=== PATIENT | female | born 1985 | race Caucasian/White ===

== ENCOUNTER 2021-09-29 10:14 | Observation (INO) | payer OTHER ==
[~2021-09-29] VITALS: Wt 83.7 kg
[~2021-09-29 10:14] MED LIST: ASPI81CH PO; Aldactone25 MG PO; BENZT; CARV3.125 PO; FURO20 PO; Flecainide Acet50 MG PO; LISI5 PO; LOSA25 PO; MULVITMINE; PRENATAL TABLE1 EAC1; Pacerone100 MG PO; SPIR25 PO; Tambocor100 MG PO; XARELTO10 MG PO; XARELTO20 MG PO; [UNRECOGNIZED DRUG - OTHER]
[2021-09-29] MEDS ORDERED: METO25ER PO (16:34)
[2021-09-29 17:18] LABS: Hematocrit 40.9 % (33.0-51.0); Hemoglobin 13.3 g/dL (11.5-16.0); Mean Corpuscular HGB 27.4 pg (26.0-34.0); Mean Corpuscular HGB Conc 32.5 g/dL (31.5-36.5); Mean Corpuscular Volume 84 fL (80-100); Mean Platelet Volume 9.9 fL (9.1-12.4); Platelet Count 285 K/mm3 (150-400); RDW Coefficient Variation 14.2 % (11.7-14.2); RDW Standard Deviation 43.5 fL (35.1-46.3); Red Blood Cell Count 4.86 M/mm3 (3.80-5.20); White Blood Cell Count 8.49 K/mm3 (4.00-11.30)
[2021-09-29 17:41] LABS: International Normalized Ratio 1.06; Prothrombin Time Results 11.1 Sec (9.7-11.5)
[2021-09-29 17:52] LABS: Albumin, Blood 3.9 g/dL (3.4-5.0); Bilirubin, Total 0.2 mg/dL (0.1-1.0); Bun/Creatinine Ratio 24.2 (12.0-20.0); Calcium, Blood 8.9 mg/dL (8.5-10.1); Creatinine, Blood 0.7 mg/dL (0.40-1.00); Globulin, Blood 3.8 g/dL (2.2-4.0); Magnesium, Blood 2.1 mg/dL (1.6-2.4); Potassium, Blood 3.9 mmol/L (3.5-5.5); Total Protein, Blood 7.7 g/dL (6.4-8.2)
--- NOTE | 2021-09-29 17:53 | NUR ---
ADMIT TO PCU: ADMIT AT 1617. NEURO WNL. ALERT AND ORIENTED X4. WALKING IND. DENIES NUMBNESS/TINGLING. PERRLA. WEARING GLASSES. RESP WNL, LUNGS SOUNDING CLEAR. ON ROOM AIR SATING ABOVE 94%. TELE SHOWING AFIB WITH HR 120-160'S. COMPLAINS OF INTERMITTENT CHEST PAIN AND PALPITATIONS. DENIES CHEST PAIN AT THIS TIME. STATES SHE HAS INTERMIT CRAMPING TO LEFT LOWER ABDOMIN. DRINKING WATER AT THIS TIME. CALL LIGHT IN REACH. ORIENTED TO ROOM/UNIT. ADMIT CHARTING COMPLETE. MED REC COMPLETE. IV TO RIGHT HAND. AMIODARONE BOLUS/INFUSION STARTED. SEE EMAR FOR ADMIT. 2ND RN IN TO DOUBLE CHECK AMIO GTT. PLAN FOR PADDY IN AM WITH POSSIBLE CARDIOVERSION. RT AWARE. AT BEDSIDE. PLAN FOR NPO 4 HOURS PRIOR TO PROCEDURE. WILL CONTINUE TO MONITOR AND REPORT OFF.
--- NOTE | 2021-09-30 05:44 | NUR ---
SHIFT SUMMERY PT CONTINUES ON AMIODORONE DRIP AND HAS PROCEDURE PLANNED FOR TODAY. SHE HAS HAD NO COMPLAINTS OF CHEST PAIN/PRESSURE THROUGHOUT THE NIGHT AND AFIB RATE HAS BEEN IN THE 100S. BP WNL. PT HAS HAD NO SHORTNESS OF BREATH AND IS ON ROOM AIR. SHE IS ALERT AND ORIENTED X4, AMBULATORY TO BATHROOM AND ABLE TO MAKE ALL NEEDS KNOWN.
--- NOTE | 2021-09-30 09:41 | NUR ---
ASSUMED CARE OF PT THIS AM ALERT AND ORIENTED THIS AM. INDEPENDENT IN ROOM. PT REMAINS IN AFIB HR LOW 100S, BP WNL. CURRENTLY ON RA. PT. IV TO RIGHT HAND INFILTRATED. IV REMOVED AND NEW IV PLACED. PT. DENIES PAIN. PLANS FOR PADDY AND CARDIOVERSION IN [facility] CUTTER AT 1000. CALL LIGHT IN REACH.
--- NOTE | 2021-09-30 09:54 | NUR ---
PT TO [facility] FOR PROCEDURE.
--- NOTE | 2021-09-30 10:10 | NUR ---
PATIENT BROUGHT TO ROOM 207 FOR PADDY/DVVC WITH ANESTHESIA, PLACED ON MONITOR AND DEFIB. PREPPED WITH O2, CO2, MONITOR AND SUCTION. AWAITING ANESTHESIA AND MD TO ARRIVE.
[2021-09-30 10:12] LABS: Influenza A, PCR NEGATIVE (NEGATIVE); Influenza B, PCR NEGATIVE (NEGATIVE); Resp Syncytial Virus, PCR NEGATIVE (NEGATIVE); SARS-Cov-2 (COVID-19) PCR, MMC NEGATIVE (NEGATIVE)
--- NOTE | 2021-09-30 10:12 | NUR ---
PATIENT NOTED IN A FIB.
--- NOTE | 2021-09-30 11:17 | NUR ---
PATIENT WAKING EASILY S/P ANESTHESIA/PADDY/DCCV. HYPOTENSION NOTED. GAVE 500 ML NS IVF BOLUS AND CONTINUED TO MONITOR. PATIENT AWAKE AND CONVERSING WITH THE STAFF.
--- NOTE | 2021-09-30 11:56 | NUR ---
PT RETURNS FROM BIOLOGY MANAGER EKG DONE, PT NOW IN SINUS RYTHM. ALERT AND ORIENTED. VSS UPON ARRIVAL. CALL LIGHT IN REACH.
--- NOTE | 2021-09-30 18:24 | NUR ---
SHIFT SUMMARY PT. REMAINS ALERT AND ORIENTED, INDEPENDENT IN ROOM. SUCCESSFUL CARDIOVERSION TODAY, PT REMAINS IN SINUS RYTHM. VSS T/O SHIFT. BLAZEN, REPORT TO ONCOMING RN.
--- NOTE | 2021-10-01 05:06 | NUR ---
SHIFT SUMMARY: PT HAS BEEN A&OX4. HR HAS BEEN SINUS RHYTHMS IN THE 60-80'S. DENIES ANY CHEST PAIN OR DISCOMFORT. UP INDEPENDENTLY IN ROOM. SLEEPING THROUGHOUT NIGHT WITHOUT ANY COMPLAINTS OR CONCERNS. A.M. VSS. CALL LIGHT IN REACH.
--- NOTE | 2021-10-01 09:07 | NUR ---
2009 DR JEONG ROUNDED, PATIENT TO HAVE A LIMITED ECHO AND THEN POSSIBLE DISCHARGE HOME, PATIENT ALERT AND ORIENTED, WANTING TO GO HOME, INDEPENDENT IN ROOM, CALL LIGHT WITH IN REACH
--- NOTE | 2021-10-01 10:13 | NUR ---
ECHO DONE THIS AM, WAITING FOR RESULTS
--- NOTE | 2021-10-01 11:24 | NUR ---
DR JEONG ROUNDED ON PATIENT, PATIENT TO BE DISCHARGED HOME, NEW MEDICATIONS PRESCRIBED
[2021-10-01] MEDS ORDERED: ELIQUIS5 M2 PO (11:39)
[2021-10-01] MEDS ORDERED: Flecainide Acet50 MG PO (11:41)
--- NOTE | 2021-10-01 14:10 | NUR ---
1350 PATIENT TRANSPORTED TO VEHICLE WITH FAMILY, AND TWO DAUGHTERS FOR DISCHARGE. DISCHARGE INSTRUCTIONS AND MEDICATIONS REVEIWED, PATIENT AND STATED UNDERSTANDING AND NO FURTHER QUESTIONS
== END 2021-10-01 13:48 | disposition home or self-care (01) ==
LOC: PCU 10:14
PROVIDERS: ADMIT Internal Medicine Cardiovascular Disease
DX: I48.0 Paroxysmal atrial fibrillation (principal); Z88.2 Allergy status to sulfonamides; Z88.8 Allergy status to other drugs, medicaments and biological substances; Z20.822 Contact with and (suspected) exposure to COVID-19
CPT/HCPCS: 0241U; 80053; 83735; 85027; 85610; 93005; 93010; 93308; 93312; 93321; 93325; A9270; G0378; J0282; J2250; J2704; J7030; J7060

== ENCOUNTER 2023-08-30 00:13 | Emergency (ER) | payer OTHER ==
[~2023-08-30] VITALS: Ht 162.6 cm; Wt 81.7 kg
[~2023-08-30 00:13] MED LIST changes: +ELIQUIS5 M2 PO; +METO25ER PO
[2023-08-30 03:35] VITALS: BP 117/78
== END 2023-08-30 04:40 | disposition home or self-care (01) ==
LOC: ER 00:13
DX: S06.0X0A Concussion without loss of consciousness, initial encounter (principal); S16.1XXA Strain of muscle, fascia and tendon at neck level, initial encounter; V43.52XA Car driver injured in collision with other type car in traffic accident, initial encounter; Z79.899 Other long term (current) drug therapy; I50.9 Heart failure, unspecified
CPT/HCPCS: 99283